=== PATIENT | female | born 1985 | race Caucasian/White ===

== ENCOUNTER 2018-11-03 16:35 | Emergency (ER) | payer OTHER ==
--- NOTE | 2018-11-03 17:22 | ER Report ---
History and Physical Time Seen By MD: 17:22 Hx. of Stated Complaint: abd pain HPI/ROS CHIEF COMPLAINT: Abdominal pain, vomiting HISTORY OF PRESENT ILLNESS: 32-year-old female patient presents to emergency room with complaint of abdominal pain and vomiting. Patient states that she is 3 weeks . She states that she had a secondary to preeclampsia. She states that approximately one week after her delivery she started having abdominal pain and was admitted for an endometritis. Patient was discharged after 2 days. She states she been doing fine until last night. She states that she started feeling nauseated and vomited. She states that today she has not been keeping anything down. Patient lives in [facility] and is up visiting some property that her parents own. She states that she went to urgent care to see if there is anything to for the nausea and vomiting. Patient states that she has pain that she rates an 8 out of 10. Patient refuses any medication at this time. REVIEW OF SYSTEMS: Respiratory: No cough, no dyspnea. Cardiovascular: No chest pain, no palpitations. Gastrointestinal: As noted above Musculoskeletal: No back pain. Allergies: Coded Allergies: sulfamethoxazole (Verified Allergy, Unknown, 11/03/18) trimethoprim (Verified Allergy, Unknown, 11/03/18) Home Meds Active Scripts Oxycodone Hcl/Acetaminophen (PERCOCET 5-325 MG TABLET) 1 Each Tablet, 1 EACH PO Q4-6H PRN for PAIN, #8 TAB Prov:DAPHNE CAMPBELL 11/03/18 Ondansetron 4 Mg Odt (ONDANSETRON 4 MG ODT) 4 Mg Tab.rapdis, 4 MG PO Q6H PRN for NAUSEA/VOMITING, #20 TAB Prov:DAPHNE CAMPBELL 11/03/18 Amoxicillin/Pot Clav 875-125 Mg Tab (AUGMENTIN 875-125 TABLET) 1 Each Tablet, 1 TAB PO Q12H, #26 TAB Prov:DAPHNE CAMPBELL 11/03/18 Metronidazole (FLAGYL) 500 Mg Tablet, 500 MG PO TID, #40 TAB Prov:DAPHNE CAMPBELL 11/03/18 Past Medical/Surgical History Patient has a past medical history of endometritis. Patient has a surgical history of section. Reviewed Nurses Notes: Yes Constitutional Vital Sign - Last 24 Hours 11/03/18 11/03/18 11/03/1819 17:05 17:06 17:15 17:45 Temp 98.3 Pulse 107 107 108 Resp 18 B/P (MAP) 116/79 (91) 116/79 Pulse Ox 90 88 90 O2 Delivery Room Air 11/03/18 11/03/18 11/03/18 18:15 18:57 19:00 Pulse 90 97 B/P (MAP) 126/87 (100) Pulse Ox 94 93 Physical Exam General Appearance: The patient is alert, has no immediate need for airway protection and no current signs of toxicity. Respiratory: Chest is non tender, lungs are clear to auscultation. Cardiac: regular rate and rhythm Gastrointestinal: Abdomen is soft and tender in the suprapubic region, especially around the incision, no masses, bowel sounds normal. Musculoskeletal: Neck: Neck is supple and non tender. Extremities have full range of motion and are non tender. Skin: No rashes or lesions. DIFFERENTIAL DIAGNOSIS: After history and physical exam differential diagnosis was considered for endometritis, infection secondary to section, retained products of conception Medical Decision Making Data Points Laboratory Hematology Test 11/03/18 17:10 11/03/18 17:48 Urine Color Yellow Urine Clarity Clear Urine pH 7.0 pH (4.8-9.5) Urine Specific [place] 1.024 Urine Protein Negative mg/dL (NEGATIVE) Urine Glucose (UA) Negative mg/dL (NEGATIVE) Urine Ketones Negative mg/dL (NEGATIVE) Urine Blood Small (NEGATIVE) Urine Nitrite Negative (NEGATIVE) Urine Bilirubin Negative (NEGATIVE) Urine Urobilinogen Negative mg/dL (0.2-1.9) Urine Leukocyte Esterase Small (NEGATIVE) Urine RBC 3 /HPF (0-2/HPF) Urine WBC 8 /HPF (0-5/HPF) Urine Squamous Epithelial Cells None /LPF (</=FEW) Urine Bacteria Few /HPF (NONE-FEW) Urine Mucus None /HPF (NONE-FEW) Lactate 1.2 mmol/L (0.7-2.1) Amylase Level 53 U/L (0-110) Lipase 51 U/L (23-300) Chemistry Test 11/03/18 17:10 11/03/18 17:48 Urine Color Yellow Urine Clarity Clear Urine pH 7.0 pH (4.8-9.5) Urine Specific [place] 1.024 Urine Protein Negative mg/dL (NEGATIVE) Urine Glucose (UA) Negative mg/dL (NEGATIVE) Urine Ketones Negative mg/dL (NEGATIVE) Urine Blood Small (NEGATIVE) Urine Nitrite Negative (NEGATIVE) Urine Bilirubin Negative (NEGATIVE) Urine Urobilinogen Negative mg/dL (0.2-1.9) Urine Leukocyte Esterase Small (NEGATIVE) Urine RBC 3 /HPF (0-2/HPF) Urine WBC 8 /HPF (0-5/HPF) Urine Squamous Epithelial Cells None /LPF (</=FEW) Urine Bacteria Few /HPF (NONE-FEW) Urine Mucus None /HPF (NONE-FEW) Lactate 1.2 mmol/L (0.7-2.1) Amylase Level 53 U/L (0-110) Lipase 51 U/L (23-300) Urinalysis Test 11/03/18 17:10 Urine Color Yellow Urine Clarity Clear Urine pH 7.0 pH (4.8-9.5) Urine Specific [place] 1.024 Urine Protein Negative mg/dL (NEGATIVE) Urine Glucose (UA) Negative mg/dL (NEGATIVE) Urine Ketones Negative mg/dL (NEGATIVE) Urine Blood Small (NEGATIVE) Urine Nitrite Negative (NEGATIVE) Urine Bilirubin Negative (NEGATIVE) Urine Urobilinogen Negative mg/dL (0.2-1.9) Urine Leukocyte Esterase Small (NEGATIVE) Urine RBC 3 /HPF (0-2/HPF) Urine WBC 8 /HPF (0-5/HPF) Urine Squamous Epithelial Cells None /LPF (</=FEW) Urine Bacteria Few /HPF (NONE-FEW) Urine Mucus None /HPF (NONE-FEW) EKG/Imaging Imaging COMPUTED TOMOGRAPHY OF THE Abdomen and Pelvis with CONTRAST INDICATION: Abdominal pain. TECHNIQUE: Contiguous axial 3.[address] images were obtained through the abdomen and pelvis after the administration of 85 cc Isovue-370. Coronal and sagittal reformatted images were submitted. COMPARISON: None. FINDINGS: Lung bases: The lung bases are clear. Liver and hepatic vasculature: No focal liver lesion. Gallbladder and bile ducts: Normal Spleen: Normal Pancreas: Normal Adrenals: Normal Kidneys, ureters and bladder: Symmetric enhancement. No stone or obstruction. Normal-appearing bladder. Retroperitoneum and aorta: Normal caliber aorta. GI tract, mesentery and peritoneum: No bowel obstruction. No free fluid or free air. Uterus and adnexa: The uterus has a heterogeneous appearance that is not well characterized by CT. No abnormal pelvic fluid. Bones and soft tissues: The sclerotic line to the right sacral wing suggests an old or subacute sacral insufficiency fracture. IMPRESSION: 1. Heterogeneous appearance of the uterus is of indeterminate significance. Consider pelvic ultrasound depending on clinical history. There is no abnormal pelvic fluid. 2. Sclerotic line to the right sacral wing suggests an old or subacute sacral insufficiency fracture. One of the following dose optimization techniques was utilized in the performance of this exam: Automated exposure control; adjustment of the mA and/or kV according to the patient's size; or use of an iterative reconstruction technique. Specific details can be referenced in the facility's radiology CT exam operational policy. Report Dictated By: Noe Sanchez MD at 11/03/2018 6:41 PM Report E-Signed By: Noe Sanchez MD at 11/03/2018 6:49 PM ED Course/Re-evaluation ED Course Patient is admitted exam room, history and physical were obtained. Differential diagnoses were considered. On examination lungs are clear, heart regular, abdomen soft and tender especially around her incision site. Patient had a CBC and CMP done previously in the day. Patient had an elevated white count of 16,000 with a left shift. CMP was unremarkable except for elevated liver enzymes. I did check an amylase and lipase which were unremarkable. I discussed case with Dr. Lewis, bit shaver, to discuss doing a CT scan versus an ultrasound. She felt the CT scan will be more appropriate. The CT scan did show a heterogeneous uterus. I discussed the case with Dr. Yao, bit shaver, his recognition was going ahead and treat her either as an outpatient or as an inpatient for endometritis. If she chooses to get treated as an outpatient she is to follow-up in his clinic on Sunday if she is having persistent symptoms. She is to give him a call if symptoms worsen. I discussed this with the patient and her . She felt that she could go ahead and be treated as an outpatient. We will go ahead and treat her with Augmentin, Flagyl, Zofran and a limited supply of pain medication as if her pain. She is to follow-up either with Dr. Arboleda Sunday or with her on OB when she returns home next week. Patient and her verbalized understanding and agreement with plan. Decision to Disposition Date: Nov 03, 2018 Decision to Disposition Time: 19:44 Depart Departure Latest Vital Signs Vital Signs Date Time Temp Pulse Resp B/P (MAP) Pulse Ox O2 Delivery O2 Flow Rate FiO2 11/03/18 19:00 97 93 11/03/18 18:57 126/87 (100) 11/03/18 17:06 98.3 18 Room Air Impression: Primary Impression: Endometritis Condition: Improved Disposition: HOME OR SELF-CARE Referrals: PROMISE YAO DO [place] Oxycodone Hcl/Acetaminophen (PERCOCET 5-325 MG TABLET) 1 Each Tablet 1 EACH PO Q4-6H PRN for PAIN, #8 TAB Prov: DAPHNE CAMPBELL 11/03/18 Ondansetron 4 Mg Odt (ONDANSETRON 4 MG ODT) 4 Mg Tab.rapdis 4 MG PO Q6H PRN for NAUSEA/VOMITING, #20 TAB Prov: DAPHNE CAMPBELL 11/03/18 Amoxicillin/Pot Clav 875-125 Mg Tab (AUGMENTIN 875-125 TABLET) 1 Each Tablet 1 TAB PO Q12H, #26 TAB Prov: DAPHNE CAMPBELL 11/03/18 Metronidazole (FLAGYL) 500 Mg Tablet 500 MG PO TID, #40 TAB Prov: DAPHNE CAMPBELL 11/03/18 Patient Instructions: Endometriosis (ED) Additional Instructions: Increase fluid intake. Get plenty of rest. Clear liquid diet for the next 24 hours. Then advance diet as tolerated. Return to the ER if condition worsens. Take medication as directed. Follow up with Dr. Yao on Sunday if there is no improvement. Call to make an appointment. If condition worsens and it is durign office hours call Dr. Yao's office. DAPHNE CAMPBELL Nov 03, 2018 17:22
[2018-11-03] MEDS ORDERED: ONDANSETRON 4 MG/2 ML VIAL IVP ONE (17:35)
[2018-11-03] MEDS ORDERED: NS(*) 0.9% 1000 ML BAG 1,000 ML IV ONE (17:35)
[2018-11-03] MEDS ORDERED: IOPAMIDOL 76% 100 ML INFUS BTL 100 ML ONE (18:31)
--- NOTE | 2018-11-03 18:52 | RADIOLOGY IMAGING REPORT ---
FACILITY: [facility] PATIENT NAME: Erin Hutchinson : 1985 MR: [id number] V: [id number] EXAM DATE: ORDERING PHYSICIAN: DAPHNE CAMPBELL TECHNOLOGIST: Location: [facility] [place] Patient: Erin Hutchinson : 1985 Visit/Account:[id number] Date of Sevice: 11/03/2018 COMPUTED TOMOGRAPHY OF THE Abdomen and Pelvis with CONTRAST INDICATION: Abdominal pain. TECHNIQUE: Contiguous axial 3.[address] images were obtained through the abdomen and pelvis after the administration of 85 cc Isovue-370. Coronal and sagittal reformatted images were submitted. COMPARISON: None. FINDINGS: Lung bases: The lung bases are clear. Liver and hepatic vasculature: No focal liver lesion. Gallbladder and bile ducts: Normal Spleen: Normal Pancreas: Normal Adrenals: Normal Kidneys, ureters and bladder: Symmetric enhancement. No stone or obstruction. Normal-appearing bladd er. Retroperitoneum and aorta: Normal caliber aorta. GI tract, mesentery and peritoneum: No bowel obstruction. No free fluid or free air. Uterus and adnexa: The uterus has a heterogeneous appearance that is not well characterized by CT. No abnormal pelvic fluid. Bones and soft tissues: The sclerotic line to the right sacral wing suggests an old or subacute sacra l insufficiency fracture. IMPRESSION: 1. Heterogeneous appearance of the uterus is of indeterminate significance. Consider pelvic ultrasoun d depending on clinical history. There is no abnormal pelvic fluid. 2. Sclerotic line to the right sacral wing suggests an old or subacute sacral insufficiency fracture. One of the following dose optimization techniques was utilized in the performance of this exam: Autom ated exposure control; adjustment of the mA and/or kV according to the patient's size; or use of an i terative reconstruction technique. Specific details can be referenced in the facility's radiology C T exam operational policy. Report Dictated By: Noe Sanchez MD at 11/03/2018 6:41 PM Report E-Signed By: Noe Sanchez MD at 11/03/2018 6:49 PM WSN:[id number]
[2018-11-03 18:57] VITALS: BP 126/87
[2018-11-03] MEDS ORDERED: ONDANSETRON 4 MG ODT TH SL ONE (19:30)
[2018-11-03] MEDS ORDERED: AMOX/CLAV 875 MG TAB PO ONE (19:30)
[2018-11-03] MEDS ORDERED: METRONIDAZOLE 500 MG TABLET PO ONE (19:30)
[2018-11-03] MEDS ORDERED: oxyCODONE/ACETAMIN 5/325MG TH 2 TAB/BOTTLE PO ONE (19:30)
[2018-11-03] MEDS ORDERED: METR-1 PO (19:42)
[2018-11-03] MEDS ORDERED: OXYC-865 PO (19:42)
[2018-11-03] MEDS ORDERED: AMOX-559 PO (19:42)
[2018-11-03] MEDS ORDERED: ONDA4TAB9 PO (19:42)
== END 2018-11-03 20:08 | disposition home or self-care (01) ==
LOC: ER 17:20
DX: N71.9 Inflammatory disease of uterus, unspecified (principal)
CPT/HCPCS: 74177; 81001; 82150; 83605; 83690; 87088; 96361; 96374; 99284; J2405; J7030; Q9967; S0119

== ENCOUNTER → 2018-11-03 | Outpatient (REF) | payer OTHER ==
[~2018-11-03] MED LIST: AMOX-559 PO; METR-1 PO; ONDA4TAB9 PO; OXYC-865 PO
[2018-11-03 15:41] LABS: PLATELET COUNT, AUTOMATED 431 K/uL (150-450)
== END ==
PROVIDERS: ATTEND Family Medicine
DX: R10.9 Unspecified abdominal pain (principal)
CPT/HCPCS: 82040; 82247; 82310; 82374; 82435; 82565; 82947; 84075; 84132; 84155; 84295; 84450; 84460; 84520; 85025; 86140